=== PATIENT | male | born 1995 | race Caucasian/White ===

== ENCOUNTER 2017-06-04 09:22 | Emergency (ER) | payer BC ==
[~2017-06-04] VITALS: Ht 177.8 cm; Wt 73.6 kg
[2017-06-04 10:22] LABS: BASO # 0.1 (0.0-0.2); BASO % 0.6 % (0.0-2.0); EOS # 0.1 (0.0-0.7); EOS % 1.4 % (0-4.0); GRAN # 5.6 (1.4-6.5); HEMATOCRIT 41.6 % (42.0-52.0); HEMOGLOBIN 14.7 g/dl (13.5-18.0); LYMPH # 1.5 (1.2-3.4); LYMPH % 18.5 % (20.0-51.0); MEAN CELL VOLUME 91 fl (80.0-100.0); MEAN CORPUSCULAR HEMOGLOBIN 32 pg (27.0-31.0); MEAN CORPUSCULAR HGB CONC 35 g/dl (33.0-37.0); MEAN PLATELET VOLUME 10.3 fl (7.4-10.4); MONO # 0.7 (0.1-0.6); MONO % 8.2 % (1.7-9.3); PLATELET COUNT 198 K/mm3 (130-400); RED BLOOD COUNT 4.56 M/mm3 (4.20-5.60); REDCELL DISTRIBUTION WIDTH-CV 12.4 % (11.5-14.5)
[2017-06-04] MEDS ORDERED: NORCO 325 MG-51 TAB PO (10:30)
[2017-06-04] MEDS ORDERED: CLEOCIN HCL300 MG PO (10:30)
[2017-06-04 10:44] VITALS: BP 132/66; TEMP 97.9
[2017-06-04 11:21] VITALS: PULSE 69
== END 2017-06-04 11:21 | disposition home or self-care (01) ==
LOC: COL.ER 09:22
PROVIDERS: Emergency Medicine
DX: J36 Peritonsillar abscess (principal)
CPT/HCPCS: J1100; J7030